=== PATIENT | female | born 1965 | race Caucasian/White ===

== ENCOUNTER 2019-08-14 18:40 | Emergency (ER) | payer OTHER, SELFPAY ==
[2019-08-14 18:52] VITALS: BP 139/87; PULSE 83; RESP 13; TEMP 36.3; O2SAT 99; BMI 24.3
--- NOTE | 2019-08-14 18:55 | DI.RAD.S_ITS ---
PROCEDURE: XR FINGER RT MIN 2V INDICATIONS: thumb swelling and pain TECHNIQUE: AP hand, 2 views of the first finger(s) acquired. COMPARISON: None. FINDINGS: Bones: No fractures or dislocations. No suspicious bony lesions. There is moderate first metacarpophalangeal joint degeneration. Lucency seen at the distal first metacarpal probably subchondral geodes. There is an accessory ossicle or old fracture fragment adjacent to the ulnar styloid. Soft tissues: No suspicious soft tissue calcifications. IMPRESSION: No acute osseous abnormalities. 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 Dictated by: Catarino Kolb M.D. on 08/14/2019 at 19:42 Approved by: Catarino Kolb M.D. on 08/14/2019 at 19:45
--- NOTE | 2019-08-14 20:11 | ED.UPPEXIN ---
HPI - Extremity Injury (Upper) General Chief Complaint: Extremity Injury, Upper Stated Complaint: Right Thumb swelling and pain Time Seen by Provider: 08/14/19 18:50 Source: patient Mode of arrival: Ambulatory Limitations: no limitations History of Present Illness HPI narrative: 53-year-old female daily smoker with history of hypertension presents with her daughter and a chief complaint of gradually worsening right thumb pain over the past month. She denies any obvious injury and has had no redness, warmth, red streaking or fever. She denies any breaks in the skin. She has painful range of motion and improvement with rest. She has been trying to establish with a primary care provider but no one will see her right now hence her visit to us. She denies any history of gout. She does state that she has been unpacking large number of boxes while at work, a larger number than she is used to raising the suspicion of an overuse injury. complaint: injury to: right Onset (ago): week(s) Other Extremity Injury: Right: fingers Other injuries: none Handedness: right Severity: moderate Relieving factors: rest Exacerbating factors: movement of extremity Associated symptoms: denies other symptoms Treatments prior to arrival: NSAIDS Related Data Previous Rx's Medication Instructions Recorded ketorolac 10 mg PO Q6H PRN #14 tab 08/14/19 Allergies Allergy/AdvReac Type Severity Reaction Status Date / Time No Known Drug Allergies Allergy Verified 08/14/19 18:52 Review of Systems Constitutional Constitutional: Denies chills, Denies fatigue, Denies fever(s), Denies frequent falls, Denies lethargy and Denies weakness Eyes Eyes: Denies change in vision, Denies eye discharge, Denies irritation and Denies loss of vision ENT Ears, Nose, Mouth, and Throat: Denies change in voice, Denies dizziness, Denies neck pain, Denies sore throat and Denies throat swelling Cardiovascular Cardiovascular: Denies chest pain, Denies irregular heart rhythm, Denies lightheadedness, Denies palpitations, Denies dyspnea, Denies dyspnea on exertion and Denies orthopnea Respiratory Respiratory: Denies cough, Denies dyspnea, Denies dyspnea on exertion and Denies wheezing Gastrointestinal Gastrointestinal: Denies abdominal pain, Denies change in bowel habits, Denies diarrhea, Denies nausea and Denies vomiting Genitourinary Genitourinary: Denies hematuria, Denies flank pain, Denies urinary incontinence and Denies urinary urgency Musculoskeletal Musculoskeletal: Denies back pain, Reports joint swelling, Reports limited range of motion, Denies muscle weakness, Denies neck pain, Denies numbness and Denies tingling Integumentary/Breasts Skin/Breast: Denies pruritus, Denies erythema, Denies rash and Denies wounds Neurologic Neurologic: Denies behavioral changes, Denies confusion, Denies dizziness, Denies frequent falls, Denies loss of vision, Denies numbness, Denies tingling and Denies weakness Psychiatric Psychiatric: Denies anxiety, Denies behavioral changes, Denies confusion, Denies depression, Denies homicidal ideation and Denies suicidal ideation Endocrine Endocrine: Denies fatigue, Denies flushing and Denies palpitations Hematologic/Lymphatic Hematologic/Lymphatic: Denies easy bruising Allergic/Immunologic Allergic/Immunologic: Denies urticaria, Denies throat swelling and Denies wheezing Patient History Social History Smoking Status: Current every day smoker Smoking Status: Current every day smoker alcohol intake frequency: 3 or more drinks per day Substance Use Type: does not use Exam Narrative Exam Narrative: GEN: AOx3 and in mild distress EYES: Pupils are equal, round, and reactive to light and accommodation. Extraoccular muscles are intact bilaterally. There is no subconjunctival hemorrhage or exudate. CHEST: Lungs are clear to auscultation bilaterally and free of wheezes, rales, or rhonchi. Heart rate is regular rhythm, there are no murmurs, clicks, rubs, or gallops. There is no chest wall tenderness. ABD: Abdomen is soft and nontender. There is no guarding or rebound. Bowel sounds are normal in all 4 quadrants. There is no mass or organomegaly. EXT: Minimal swelling to right thumb without redness warmth. Relatively painless passive range of motion, no pain along flexor tendon. No indication of subungual hematoma or felon. Sensation intact. SKIN: Warm, pink, and dry. No erythema or rash Initial Vital Signs Initial Vital Signs: Vital Signs Temperature 97.4 F L 08/14/19 18:52 Pulse Rate 83 08/14/19 18:52 Respiratory Rate 13 08/14/19 18:52 Blood Pressure 139/87 08/14/19 18:52 Pulse Oximetry 99 08/14/19 18:52 Course Orders Ordered: ED Orders 08/14/19 18:55 XR finger RT min 2V Stat 08/14/19 20:32 Basic Metabolic Panel Stat C-Reactive Protein Quant Stat Complete Blood Count AUTO DIFF Stat Erythrocyte Sedimentation Rate Stat Uric Acid Stat Vital Signs Vital signs: Vital Signs - 8 hr 08/14/19 18:52 08/14/19 21:20 Temperature 97.4 F L Pulse Rate 83 83 Respiratory Rate 13 Blood Pressure 139/87 131/85 Pulse Oximetry 99 95 MDM - Extremity Injury (Upper) Lab Data Result diagrams: 08/14/19 20:32 08/14/19 20:32 Labs: Lab Results 08/14/19 08/14/19 Range/Units 20:32 20:32 WBC 7.2 (4.5-11.0) X10^3/uL RBC 4.43 (4.0-5.2) X10^6/uL Hgb 14.4 (12.0-16.0) g/dL Hct 42.7 (36-46) % MCV 96.3 (80-100) fL MCH 32.5 (26-34) PG MCHC 33.7 (30-36) % RDW 13.0 (11.6-14.8) % Plt Count 268 (150-400) X10^3/uL Neut % (Auto) 34.5 L (50-75) % Lymph % (Auto) 56.6 H (25-40) % Gage % (Auto) 6.9 (3-14) % Eos % (Auto) 0.9 L (2-4) % Baso % (Auto) 1.1 (0-2) % Neut # (Auto) 2500 (2089-3082) /uL Lymph # (Auto) 4100 (8635-3534) /uL Gage # (Auto) 500 (0-900) /uL Eos # (Auto) 100 (0-450) /uL Baso # (Auto) 100 (0-100) /uL ESR 9 (0-20) MM/HR Sodium 138 (137-145) mmol/L Potassium 3.7 (3.4-5.1) mmol/L Chloride 105 (98-107) mmol/L Carbon Dioxide 24 (22-32) mmol/L BUN 10 (7-17) mg/dL Creatinine 0.64 (0.52-1.04) mg/dL Estimated GFR > 60.0 (>60) mL/min BUN/Creatinine Ratio 15.6 (6-22) Glucose 101 H (70-100) mg/dL Uric Acid 4.7 (2.5-6.2) mg/dL Calcium 9.2 (8.4-10.2) mg/dL C-Reactive Protein < 0.5 (<1.0) mg/dL Discharge Plan Departure Patient Disposition: Home Clinical Impression: Chronic thumb pain Qualifiers: Laterality: right Qualified Code(s): M79.644 - Pain in right finger(s) Discharge Date/Time: 08/14/19 21:20 Instructions: DI for Arthritis Activity Restrictions/Additional Instructions: *You have been diagnosed with [chronic thumb pain, likely a type of arthritis. No sign of infection, gout, fracture or dislocation. ] *What to do: *Take medications as directed *Follow up with your primary care provider in 2-3 days, call for an appointment. Let them know you were seen in the Emergency Department and that we ask that you be seen in follow up *Return to ER if you should have any new, worsening or concerning symptoms Prescriptions: New ketorolac 10 mg tablet 10 mg PO Q6H PRN (Reason: pain) Qty: 14 RF: 0 Referrals: [facility] [Outside]
[2019-08-14 20:52] LABS: Add Manual Diff / Slide Review NO; Basophils Absolute Auto 100 /uL (0-100); Basophils Percent Auto 1.1 % (0-2); Eosinophils Absolute Auto 100 /uL (0-450); Eosinophils Percent Auto 0.9 % (2-4); Hematocrit 42.7 % (36-46); Hemoglobin 14.4 g/dL (12.0-16.0); Lymphocytes Absolute Auto 4100 /uL (1100-4500); Lymphocytes Percent Auto 56.6 % (25-40); Mean Corpuscular HGB Conc 33.7 % (30-36); Mean Corpuscular Hemoglobin 32.5 PG (26-34); Mean Corpuscular Volume 96.3 fL (80-100); Monocytes Absolute Auto 500 /uL (0-900); Monocytes Percent Auto 6.9 % (3-14); Neutrophils Absolute Auto 2500 /uL (1500-7000); Neutrophils Percent Auto 34.5 % (50-75); Platelet Count 268 X10^3/uL (150-400); Red Blood Cell Count 4.43 X10^6/uL (4.0-5.2); White Blood Cell Count 7.2 X10^3/uL (4.5-11.0)
[2019-08-14 20:59] LABS: BUN Creatinine Ratio 15.6 (6-22); Blood Urea Nitrogen 10 mg/dL (7-17); Calcium 9.2 mg/dL (8.4-10.2); Carbon Dioxide 24 mmol/L (22-32); Chloride 105 mmol/L (98-107); Estimated Glomerular Filt Rate > 60.0 mL/min (>60); Glucose 101 mg/dL (70-100); HEMOLYSIS < 15 (0-50); Potassium 3.7 mmol/L (3.4-5.1); Sodium 138 mmol/L (137-145); Uric Acid 4.7 mg/dL (2.5-6.2)
[2019-08-14 21:07] LABS: C-Reactive Protein Quant < 0.5 mg/dL (<1.0)
[2019-08-14 21:11] LABS: Erythrocyte Sedimentation Rate 9 MM/HR (0-20)
--- NOTE | 2019-08-14 21:19 | PC.NURSE ---
we don't have any right handed thumb spicas. Pt has 1 at home already
[2019-08-14 21:20] VITALS: BP 131/85; PULSE 83; O2SAT 95
== END 2019-08-14 21:20 | disposition home or self-care (01) ==
PROVIDERS: Emergency Provider Emergency Medicine
DX: M79.644 Pain in right finger(s) (principal); I10 Essential (primary) hypertension
CPT/HCPCS: 36415; 73140; 80048; 84550; 85025; 85651; 86140; 99283; 99284

== ENCOUNTER 2020-11-27 12:33 | Emergency (ER) | payer OTHER, SELFPAY ==
[2020-11-27 12:35] VITALS: BP 131/93; PULSE 99; RESP 13; TEMP 37.1; O2SAT 100; BMI 25.8
[2020-11-27] MEDS: methylPREDNISolone 125 MG/2 ML VIAL IV (13:20)
[2020-11-27] MEDS: FAMOTIDINE 20 MG/2 ML VIAL IV (13:20)
[2020-11-27] MEDS: diphenhydrAMINE 50 MG/ML VIAL IV (13:21)
--- NOTE | 2020-11-27 13:27 | ED_ITS ---
HPI - Allergic Reaction <Beau Motta PA-C - Last Filed: 11/27/20 13:45> General Chief complaint: Allergic Reaction Stated complaint: face swelling and lips tingling Time Seen by Provider: 11/27/20 12:57 History of Present Illness HPI narrative: Feliz presents today with chief complaint of right upper lip swelling that started this morning after she woke up. She reports that she has never had this happen before. She denies any new cosmetics, exposure to foods, soaps, new medications, or anything elbows at this time. She denies any significant dental pain. She also denies any personal or family history of angioedema. She has no known allergies to medications or other. She denies any chest pain, difficulty swallowing, mouth fullness, voice changes, shortness of breath, cough, rash or any other acute concerns or complaints at this time. She has been on lisinopril for the last 15 years and denies any recent dosage adjustments. Related Data Previous Rx's Medication Instructions Recorded ketorolac 10 mg tablet 10 mg PO Q6H PRN #14 tab 08/14/19 famotidine 40 mg tablet 40 mg PO DAILY 7 Days #7 tab 11/27/20 fexofenadine 180 mg tablet 180 mg PO DAILY 7 Days #7 tab 11/27/20 prednisone 20 mg tablet 40 mg PO DAILY 7 Days #14 tab 11/27/20 Allergies Allergy/AdvReac Type Severity Reaction Status Date / Time No Known Drug Allergies Allergy Verified 11/27/20 13:34 Review of Systems <Beau Motta PA-C - Last Filed: 11/27/20 13:45> Review of Systems Narrative: As per HPI Patient History <Beau Motta PA-C - Last Filed: 11/27/20 13:45> Social History Smoking Status: Current every day smoker Smoking Status: Current every day smoker alcohol intake frequency: 3 or more drinks per day Substance Use Type: does not use Exam <Beau Motta PA-C - Last Filed: 11/27/20 13:45> Narrative Exam Narrative: Const General: cooperative, healthy appearing, comfortable and no acute distress Nutritional Appearance: average body habitus and well nourished Orientation: alert and oriented x3 HENMT Head: normal to inspection and normocephalic Ears: hearing grossly normal bilaterally, external ears normal, TM's normal bilaterally, EAC's normal, mastoids normal and no periauricular adenopathy Nose: external nose normal, nares normal and no nasal discharge Face and sinus: normal facial exam, sinuses nontender and face symmetric Mouth: oral mucosae normal, right upper lip is grossly swollen without any overlying skin abnormalities, tongue normal and moist mucous membranes Teeth and gingiva: dentition normal and gingiva normal Throat: posterior oropharynx normal, uvula midline, no postnasal drainage and no uvular edema Eyes periorbital findings normal, eyelids normal, conjunctivae normal Neck: normal visual inspection, no anterior swelling, full ROM, no lymphadenopathy Resp normal respiratory effort, able to speak in complete sentences, not labored and no respiratory distress, clear to auscultation bilaterally, no crackles, no rales and no wheezes Cardio regular rate regular rhythm Heart Sounds: no gallops, no murmurs and no rubs Skin No rash or lesions noted. Neuro Alert and Oriented x3, normal gait, moves all extremities. Initial Vital Signs Initial Vital Signs: Vital Signs Temperature 98.7 F 11/27/20 12:35 Pulse Rate 99 H 11/27/20 12:35 Respiratory Rate 13 11/27/20 12:35 Blood Pressure 131/93 H 11/27/20 12:35 Pulse Oximetry 100 11/27/20 12:35 <Harvinder Mayo DO - Last Filed: 11/27/20 14:04> Initial Vital Signs Initial Vital Signs: Vital Signs Temperature 98.7 F 11/27/20 12:35 Pulse Rate 99 H 11/27/20 12:35 Respiratory Rate 13 11/27/20 12:35 Blood Pressure 131/93 H 11/27/20 12:35 Pulse Oximetry 100 11/27/20 12:35 Course <Beau Motta PA-C - Last Filed: 11/27/20 13:45> Orders Ordered: Famotidine (Famotidine 20 Mg/2 Ml Vial) 20 mg IV NOW FLAKO Last Admin: 11/27/20 13:20 Dose: 20 mg Documented by: KBROTEM Discontinued Medications Diphenhydramine HCl (Diphenhydramine 50 Mg/Ml Vial) 50 mg IV NOW ONE Stop: 11/27/20 13:04 Last Admin: 11/27/20 13:21 Dose: 50 mg Documented by: MERRY Methylprednisolone (Methylprednisolone 125 Mg/2 Ml Vial) 125 mg IV NOW ONE Stop: 11/27/20 13:04 Last Admin: 11/27/20 13:20 Dose: 125 mg Documented by: MERRY Vital Signs Vital signs: Vital Signs - 8 hr 11/27/20 12:35 11/27/20 14:00 Temperature 98.7 F Pulse Rate 99 H 64 Respiratory Rate 13 20 Blood Pressure 131/93 H 113/71 Pulse Oximetry 100 100 <Harvinder Mayo DO - Last Filed: 11/27/20 14:04> Orders Ordered: Famotidine (Famotidine 20 Mg/2 Ml Vial) 20 mg IV NOW FLAKO Last Admin: 11/27/20 13:20 Dose: 20 mg Documented by: MERRY Discontinued Medications Diphenhydramine HCl (Diphenhydramine 50 Mg/Ml Vial) 50 mg IV NOW ONE Stop: 11/27/20 13:04 Last Admin: 11/27/20 13:21 Dose: 50 mg Documented by: MERRY Methylprednisolone (Methylprednisolone 125 Mg/2 Ml Vial) 125 mg IV NOW ONE Stop: 11/27/20 13:04 Last Admin: 11/27/20 13:20 Dose: 125 mg Documented by: MERRY Vital Signs Vital signs: Vital Signs - 8 hr 11/27/20 12:35 11/27/20 14:00 Temperature 98.7 F Pulse Rate 99 H 64 Respiratory Rate 13 20 Blood Pressure 131/93 H 113/71 Pulse Oximetry 100 100 MDM - Allergic Reaction <Beau Motta PA-C - Last Filed: 11/27/20 13:45> [facility] Narrative Medical decision making narrative: Differential diagnosis includes dental abscess, anaphylaxis, cellulitis, hereditary angioedema. Patient does not have any significant dental caries or gingival swelling or erythema on examination. No familial history consistent with red Winnie angioedema. No overlying skin abnormalities noted. Symptoms seem to be isolated to the right upper lip and she does not have any rash, chest tightness, GI symptoms that would be concerning for anaphylaxis. Return precautions discussed with the patient. Patient verbalizes understanding and agrees to plan and has no further concerns at this time. Thank you A [id number] system was used with the dictation of this note. Please disreg nuria any spelling or grammatical errors. 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 Recommend steroid therapy in addition to antihistamine therapy. Recommend stopping the lisinopril and following up with primary care provider for evaluation of another antihypertensive. If you experience worsening swelling, throat tightness, shortness of breath, cough, voice changes or have any worsening symptoms please return immediately for re-evaluation. Thank you Beau Motta PA-C Prescriptions: New prednisone 20 mg tablet 40 mg PO DAILY 7 Days Qty: 14 RF: 0 fexofenadine 180 mg tablet 180 mg PO DAILY 7 Days Qty: 7 RF: 0 famotidine 40 mg tablet 40 mg PO DAILY 7 Days Qty: 7 RF: 0 No Action ketorolac 10 mg tablet 10 mg PO Q6H PRN (Reason: pain) Qty: 14 RF: 0 <Harvinder Mayo, DO - Last Filed: 11/27/20 14:04> Cosign ED Attending Cosignature Attestation: Dr Mayo Co-Sign Statement: I was available for consultation during this patient's emergency department visit. This chart is signed by myself for administrative purposes only. I did not have direct contact with this patient during this visit. They were seen independently by the APC.
--- NOTE | 2020-11-27 13:40 | PC.NURSE ---
Pt tongue not swollen,no difficulty swallowing ,no resp distress.
[2020-11-27 14:00] VITALS: BP 113/71; PULSE 64; RESP 20; O2SAT 100
== END 2020-11-27 14:06 | disposition home or self-care (01) ==
PROVIDERS: Emergency Provider Physician Assistant
DX: T78.3XXA Angioneurotic edema, initial encounter (principal)
CPT/HCPCS: 96374; 96375; 99283; 99284; J1200; J2930